=== PATIENT | male | born 1960 | race Caucasian/White ===

== ENCOUNTER 2018-12-15 10:51 | Emergency (ER) | payer OTHER ==
[~2018-12-15] VITALS: Ht 177.8 cm; Wt 81.4 kg
[2018-12-15] MEDS ORDERED: CRUTCHES MC (11:57)
[2018-12-15 12:15] VITALS: BP 127/91; PULSE 67; TEMP 98.5
== END 2018-12-15 12:15 | disposition home or self-care (01) ==
LOC: COL.ER 10:51
DX: S99.911A Unspecified injury of right ankle, initial encounter (principal); Z88.1 Allergy status to other antibiotic agents; X50.1XXA Overexertion from prolonged static or awkward postures, initial encounter; Y93.B9 Activity, other involving muscle strengthening exercises

== ENCOUNTER → 2020-06-03 | Outpatient (REF) ==
[~2020-06-03] MED LIST: CRUTCHES MC
== END ==
LOC: COL.CARD 10:19
DX: R07.89 Other chest pain (principal)